=== PATIENT | male | born 1980 | race Caucasian/White ===

== ENCOUNTER 2020-10-21 15:24 | Inpatient (IN) | payer MEDICAID, SELFPAY ==
[2020-10-21 15:29] VITALS: BMI 20.7
[2020-10-21 15:49] VITALS: BP 114/74; PULSE 55; RESP 18; TEMP 36.3; O2SAT 97
[2020-10-21 20:10] VITALS: BP 114/81; PULSE 68; RESP 18; TEMP 36.6; O2SAT 98
[2020-10-22 06:00] VITALS: BP 126/81; PULSE 56; RESP 16; TEMP 36.5; O2SAT 98
[2020-10-22] MEDS: pantoprazole DR 40 mg Tablet PO (08:53)
[2020-10-22 13:52] VITALS: BP 116/66; PULSE 70; RESP 15; TEMP 36.7; O2SAT 96
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
[2020-10-22 20:25] VITALS: BP 125/80; PULSE 72; RESP 17; TEMP 36.6; O2SAT 98
[2020-10-22] MEDS: quetiapine 100 mg Tablet 150 MG PO (21:59)
[2020-10-22] MEDS: mirtazapine 15 mg Tablet PO (21:59)
[2020-10-23 06:00] VITALS: BP 115/69; PULSE 58; RESP 17; TEMP 36.6; O2SAT 98
[2020-10-23] MEDS: pantoprazole DR 40 mg Tablet PO (09:17)
[2020-10-23 14:00] VITALS: BP 118/77; PULSE 98; RESP 18; TEMP 36.3; O2SAT 99
--- NOTE | 2020-10-23 17:01 | P.PN_ITS ---
Subjective NPU Subjective: Interval history: Aric presents today reporting that he is doing okay on the medication. He presented endorsing hallucinations which have been less he reports here in the hospital but is ambivalent about whether we should make a medication change or not. He is working with the social work team on options for discharge. We identified that either we would have to find a place today which is unclear if he would be stable enough to leave and have assessed in outpatient environment but the options that identified would not be available again until Monday. We discussed the likely plan to shoot for that date. Mental Status Exam MSE Comments: This is a well-nourished well-developed white male in [facility] scrubs with adequate eye contact and limited grooming. No abnormal movements except for mild psychomotor retardation. Cooperative with exam in no acute distress. Speech was decreased rate and volume. Mood described as a little tired but okay, affect subdued. Thought process organized. Thought content: Patient denied suicidal or homicidal ideation, there were no delusions reported, but he did seem somewhat guarded, he denied auditory or visual hallu cinations. Currently the reports he was having prior to hospitalization. Attention and concentration were intact and memory was mostly reliable but none were formally tested. He is alert and oriented x3. Insight and judgment appear fair impulse control appears fair., Vitals/I&O/Wt Last Vital Signs Temp 98.1 F 10/23/20 20:36 Pulse 69 10/23/20 20:36 Resp 18 10/23/20 20:36 BP 113/80 10/23/20 20:36 Pulse Ox 98 10/23/20 20:36 A&P Additional A&P Information (1) Schizophrenia: (2) Hallucinations: This is a 40-year-old white male with a long history of schizophrenia and addiction who presents with a negative UDS but ongoing hallucinations and significant psychosocial stressors. 1. Continue current medication. 2. Continue every 15 minute checks for safety. 3. Encourage individual, group and milieu therapies. Involuntary Hold Information 96 Hour Hold: 96 Hour Involuntary Admission: No Attestations NPU Medical Necessity Statement*: Inpatient hospitalization is medically necessary and the clinically appropriate intervention at this time. We will monitor medications and make changes as indicated. Likely length of stay 2-4 days. 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
[2020-10-23 20:36] VITALS: BP 113/80; PULSE 69; RESP 18; TEMP 36.7; O2SAT 98
[2020-10-23] MEDS: mirtazapine 15 mg Tablet PO (22:05)
[2020-10-23] MEDS: quetiapine 100 mg Tablet 150 MG PO (22:05)
[2020-10-24 06:00] VITALS: BP 114/79; PULSE 80; RESP 17; TEMP 36.7; O2SAT 98
[2020-10-24] MEDS: pantoprazole DR 40 mg Tablet PO (10:04)
--- NOTE | 2020-10-24 10:17 | PM.NPN ---
Subjective NPU Subjective: Interval history: Patient presents today reporting that he is feeling a bit better. He reports having this plan to [facility] when [facility]. He reports however that he generally functions better when he is on Zyprexa. He has a history of being on the Zydis but that had to do with his treatment team had concerns about him actually taking it. We discussed the risk of its alternatives of adding Zyprexa 5 mg p.o. nightly and he understood agreed proceed as documented in his note. Mental Status Exam MSE Comments: This is a well-nourished well-developed white male in [facility] scrubs with adequate eye contact and limited grooming. No abnormal movements except for mild psychomotor retardation. Cooperative with exam in no acute distress. Speech was decreased rate and volume. Mood described as a little better, affect less subdued. Thought process organized. Thought content: Patient denied suicidal or homicidal ideation, there were no delusions reported, but he did seem somewhat guarded, he denied auditory or visual hallucinations. Attention and concentration were intact and memory was mostly reliable but none were formally tested. He is alert and oriented x3. Insight and judgment appear fair impulse control appears fair., Vitals/I&O/Wt Last Vital Signs Temp 98.1 F 10/24/20 06:00 Pulse 80 10/24/20 06:00 Resp 17 10/24/20 06:00 BP 114/79 10/24/20 06:00 Pulse Ox 98 10/24/20 06:00 A&P Additional A&P Information (1) Schizophrenia: (2) Hallucinations: This is a 40-year-old white male with a long history of schizophrenia and addiction who presents with a negative UDS but ongoing hallucinations and significant psychosocial stressors. 1. Continue current medication. 2. Continue every 15 minute checks for safety. 3. Encourage individual, group and milieu therapies. 4. Start Zyprexa 5 mg p.o. nightly. Involuntary Hold Information 96 Hour Hold: 96 Hour Involuntary Admission: No Attestations NPU Medical Necessity Statement*: Inpatient hospitalization is medically necessary and the clinically appropriate intervention at this time. We will monitor medications and make changes as indicated. Likely length of stay 2-3 days. 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
[2020-10-24 14:00] VITALS: BP 115/78; PULSE 86; RESP 18; TEMP 36.3; O2SAT 98
[2020-10-24 20:33] VITALS: BP 138/82; PULSE 77; RESP 22; TEMP 36.6; O2SAT 99
[2020-10-24] MEDS: quetiapine 100 mg Tablet 150 MG PO (20:37)
[2020-10-24] MEDS: mirtazapine 15 mg Tablet PO (20:37)
[2020-10-24] MEDS: OLANZapine 5 mg ODT PO (20:38)
[2020-10-25 06:00] VITALS: BP 103/62; PULSE 50; RESP 16; TEMP 36.8; O2SAT 97
[2020-10-25] MEDS: pantoprazole DR 40 mg Tablet PO (08:59)
--- NOTE | 2020-10-25 12:10 | P.PN_ITS ---
Subjective NPU Subjective: Interval history: Patient presents today reporting that he is doing better with the Zyprexa. He endorses optimism about restarting things in [place] in [facility]. He discussed the plan to order his medication before the pharmacy opens so that he can leave as soon as those prescriptions are filled. Otherwise denies any challenges. Mental Status Exam MSE Comments: This is a well-nourished well-developed white male in [facility] scrubs with adequate eye contact and limited grooming. No abnormal movements except for resolving mild psychomotor retardation. Cooperative with exam in no acute distress. Speech was more normal rate and volume. Mood described as better, affect less subdued. Thought process organized. Thought content: Patient denied suicidal or homicidal ideation, there were no delusions reported, but he did seem less guarded, he denied auditory or visual hallucinations. Attention and concentration were intact and memory was mostly reliable but none were formally tested. He is alert and oriented x3. Insight and judgment appear fair impulse control appears fair., Vitals/I&O/Wt Last Vital Signs Temp 98.3 F 10/25/20 06:00 Pulse 50 L 10/25/20 06:00 Resp 16 10/25/20 06:00 BP 103/62 10/25/20 06:00 Pulse Ox 97 10/25/20 06:00 Weight last 48 hrs Weight 67.585 kg Weight 67.585 kg A&P Additional A&P Information (1) Schizophrenia: (2) Hallucinations: This is a 40-year-old white male with a long history of schizophrenia and addiction who presents with a negative UDS but ongoing hallucinations and significant psychosocial stressors. 1. Continue current medication. 2. Continue every 15 minute checks for safety. 3. Encourage individual, group and milieu therapies. 4. Tentative plan for discharge in the morning. Involuntary Hold Information 96 Hour Hold: 96 Hour Involuntary Admission: No Attestations NPU Medical Necessity Statement*: Inpatient hospitalization is medically necessary and the clinically appropriate intervention at this time. We will monitor medications and make changes as indicated. Likely length of stay 1-2 days. Coding Level of Care Code Acute [employer] Storage Worker for [employer]
[2020-10-25 14:00] VITALS: BP 115/75; PULSE 96; RESP 14; TEMP 36.6; O2SAT 93
[2020-10-25 20:40] VITALS: BP 117/89; PULSE 92; RESP 20; TEMP 36.9; O2SAT 96
[2020-10-25] MEDS: OLANZapine 5 mg ODT PO (22:24)
[2020-10-25] MEDS: quetiapine 100 mg Tablet 150 MG PO (22:24)
[2020-10-25] MEDS: mirtazapine 15 mg Tablet PO (22:25)
[2020-10-26 06:00] VITALS: BP 108/77; PULSE 81; RESP 17; TEMP 36.4; O2SAT 95
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
[2020-10-26] MEDS: pantoprazole DR 40 mg Tablet PO (10:30)
[2020-10-26 10:41] VITALS: BP 108/77; PULSE 81; RESP 17; TEMP 36.4; O2SAT 95
[2020-10-26 13:52] VITALS: BP 120/81; PULSE 80; RESP 17; TEMP 36.6; O2SAT 98
== END 2020-10-26 14:01 | disposition home or self-care (01) | DRG 885 ==
PROVIDERS: Admitting Provider Psychiatry & Neurology Psychiatry; Visit Provider Psychiatry & Neurology Psychiatry
DX: F20.0 Paranoid schizophrenia (principal); F17.210 Nicotine dependence, cigarettes, uncomplicated; Z59.0 Homelessness; Z85.528 Personal history of other malignant neoplasm of kidney; Z90.5 Acquired absence of kidney; K72.10 Chronic hepatic failure without coma; Z91.5 Personal history of self-harm